=== PATIENT | male | born 1985 | race American Indian/Alaskan Native ===

== ENCOUNTER 2020-12-20 10:57 | Emergency (ER) | payer SELFPAY ==
[2020-12-20] MEDS ORDERED: IBUPROFEN 800 MG TAB PO ONE (12:45)
--- NOTE | 2020-12-20 13:16 | XRay Report ---
XR ankle 3+V LT INDICATION / CLINICAL INFORMATION: ankle pain. COMPARISON: None available. FINDINGS: BONES/JOINT(S): No acute fracture or subluxation. 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 SOFT TISSUES: No significant abnormality. ADDITIONAL FINDINGS: None. Signer Name: Ariel Dawson MD Signed: 12/20/2020 1:11 PM Workstation Name: [id number]
--- NOTE | 2020-12-20 13:20 | Emergency Department Report ---
ED Lower Extremity HPI - General Chief Complaint: Extremity Injury, Lower Stated Complaint: INJURY TO ANKLE LT Time Seen by Provider: 12/20/20 12:06 Source: patient Mode of arrival: Wheelchair Limitations: No Limitations - History of Present Illness Initial Comments: This is a 35-year-old male nontoxic, well nourished in appearance, no acute signs of distress presents to the ED with c/o of left ankle pain 1 day. Patient stated that while he was playing basketball he felt a popping sensation to the Achilles area. Patient denies any other injuries or trauma. Patient denies any numbness, tingling, fever, chills, nausea, vomiting, chest pain, shortness of breath, headache, stiff neck. Patient denies any joint swelling or joint redness. Patient stated has decreased range of motion. Patient stated has decreased gait due to pain. Patient denies any allergies or significant past medical history. MD Complaint: ankle injury -: days(s) Injury: Ankle: Left Place: street/outdoors Severity: mild Severity scale (0 -10): 8 Improves With: immobilization Worsens With: weight bearing, movement, palpation Associated Symptoms: swelling, unable to bear weight. denies: snap/pop sensation, numbness, tingling - Related Data Previous Rx's Medication Instructions Recorded Last Taken Type Naproxen 500 mg PO Q12H PRN #12 tablet 12/20/20 Unknown Rx Allergies Allergy/AdvReac Type Severity Reaction Status Date / Time No Known Allergies Allergy Verified 12/20/20 11:27 ED Review of Systems ROS: Stated complaint: INJURY TO ANKLE LT Other details as noted in HPI Constitutional: denies: chills, fever Eyes: denies: eye pain, eye discharge, vision change ENT: denies: ear pain, throat pain Respiratory: denies: cough, shortness of breath, wheezing Cardiovascular: denies: chest pain, palpitations Endocrine: no symptoms reported Gastrointestinal: denies: abdominal pain, nausea, diarrhea Genitourinary: denies: urgency, dysuria Musculoskeletal: denies: back pain, joint swelling, arthralgia Skin: denies: rash, lesions Neurological: denies: headache, weakness, paresthesias Psychiatric: denies: anxiety, depression Hematological/Lymphatic: denies: easy bleeding, easy bruising ED Past Medical Hx - Social History Smoking Status: Current Every Day Smoker Substance Use Type: None - Medications Home Medications: Home Medications Medication Instructions Recorded Confirmed Last Taken Type Naproxen 500 mg PO Q12H PRN #12 tablet 12/20/20 Unknown Rx ED Physical Exam - General Limitations: No Limitations General appearance: alert, in no apparent distress - Head Head exam: Present: atraumatic, normocephalic - Eye Eye exam: Present: normal appearance - Neck Neck exam: Present: normal inspection, full ROM - Respiratory Respiratory exam: Absent: respiratory distress - Cardiovascular Cardiovascular Exam: Present: regular rate - Extremities Exam Extremities exam: Present: tenderness, normal capillary refill. Absent: full ROM (Decreased range of motion), pedal edema, joint swelling, calf tenderness - Expanded Lower Extremity Exam Left Hip exam: Present: normal inspection, full ROM. Absent: tenderness, swelling Upper Leg exam: Present: normal inspection, full ROM. Absent: tenderness, swelling Knee exam: Present: normal inspection, full ROM. Absent: tenderness, swelling Lower Leg exam: Present: normal inspection, full ROM. Absent: tenderness, swelling, abrasion, laceration, ecchymosis, deformity, crepidus, dislocation, erythema, palpable cord, Brenda's sign Ankle exam: Present: tenderness, swelling. Absent: full ROM (Decreased range of motion), abrasion, laceration, ecchymosis, deformity, crepidus, dislocation, erythema, anterior draw sign Foot/Toe exam: Present: normal inspection, full ROM. Absent: tenderness, swelling Neuro vascular tendon exam: Present: no vascular compromise Gait: Positive: unable to bear weight - Back Exam Back exam: Present: normal inspection, full ROM. Absent: tenderness, CVA tenderness (R), CVA tenderness (L), muscle spasm, paraspinal tenderness, vertebral tenderness, rash noted - Neurological Exam Neurological exam: Present: alert, oriented X3 - Psychiatric Psychiatric exam: Present: normal affect, normal mood - Skin Skin exam: Present: warm, dry, intact, normal color. Absent: rash - Other Other exam information: Positive Alexander test to left ankle ED Course Vital Signs 12/20/20 11:27 Temperature 98.3 F Pulse Rate 70 Respiratory 18 Rate Blood Pressure 115/65 O2 Sat by Pulse 98 Oximetry Vital Signs 12/20/20 11:27 Temperature 98.3 F Pulse Rate 70 Respiratory 18 Rate Blood Pressure 115/65 O2 Sat by Pulse 98 Oximetry - Reevaluation(s) Reevaluation #1: 12/20/20 13:21 Patient is speaking in full sentences with no signs of distress noted. - Consultations Consultation #1: 12/20/20 14:39 Patient has been consulted with Dr. Lemus about patient history, physical exam, and xrays and agrees to the ED plan of care and discharge instructions with follow-up. ED Lower Extremity MDM - Radiology Data [facility] [address] [place] [address] XRay Report Signed Patient: DOTTY OWUSU MR#: [id number] : 1985 Acct:[id number] Age/Sex: 35 / M ADM Date: 12/20/20 Loc: ED Attending Dr: Ordering Physician: JB VILLALTA NP Date of Service: 12/20/20 Procedure(s): XR ankle 3+V LT Accession Number(s): [id number] cc: JB VILLALTA NP Fluoro Time In Minutes: XR ankle 3+V LT INDICATION / CLINICAL INFORMATION: ankle pain. COMPARISON: None available. FINDINGS: BONES/JOINT(S): No acute fracture or subluxation. 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 SOFT TISSUES: No significant abnormality. ADDITIONAL FINDINGS: None. Signer Name: Ariel Dawson MD Signed: 12/20/2020 1:11 PM Workstation Name: [id number] Transcribed By: CARY Dictated By: Ariel Dawson MD Electronically Authenticated By: Ariel Dawson MD Signed Date/Time: 12/20/20 1311 DD/ 1311 TD/TT: - Medical Decision Making This is a 35-year-old male that presents with left Achilles tendon rupture. Patient is stable and was examined by me. Consulted with orthopedic doctor. I referred patient to an orthopedic doctor for further evaluation for possible MRI. X-ray has been obtained and dictated by the radiologist. Patient is notified of the x-ray report with noted by the patient. Patient received a sugar tong splint and crutches and was educated by RN how to use crutches. Post splint assessment: neurovasular intact; normal cap refill <2 second; normal sensation; denies decreaed sensation; normal ROM of digits. Patient discharged with naproxen. At time of discharge, the patient does not seem toxic or ill in appearance. No acute signs of distress noted. Patient agrees to discharge treatment plan of care. No further questions noted by the patient. Critical care attestation.: If time is entered above; I have spent that time in minutes in the direct care of this critically ill patient, excluding procedure time. ED Disposition Clinical Impression: Rupture of left Achilles tendon Qualifiers: Encounter type: initial encounter Qualified Code(s): S86.012A - Strain of left Achilles tendon, initial encounter Disposition: TO HOME OR SELFCARE Is pt being admited?: No Does the pt Need Aspirin: No Condition: Stable Instructions: Achilles Tendon Tear, RICE Therapy for Routine Care of Injuries, [id number], Cast or Splint Care, Adult, Crutch Use, Adult, [id number] Additional Instructions: Follow-up with a orthopedic doctor in 3-5 days or if symptoms worsen and continue return to emergency room as soon as possible. No physical activity that extremity until cleared by orthopedic doctor Prescriptions: Naproxen 500 mg PO Q12H PRN #12 tablet PRN Reason: Pain , Severe (7-10) Referrals: PRIMARY CARE, [Primary Care Provider] - 3-5 Days ZAK LEMUS MD [Staff Physician] - 3-5 Days Forms: Work/School Release Form(ED) Time of Disposition: 15:18
[2020-12-20 15:39] VITALS: BP 134/75
== END 2020-12-20 15:38 | disposition home or self-care (01) ==
LOC: ED 10:57
DX: S86.012A Strain of left Achilles tendon, initial encounter (principal); F17.200 Nicotine dependence, unspecified, uncomplicated; Z79.899 Other long term (current) drug therapy; X50.1XXA Overexertion from prolonged static or awkward postures, initial encounter; Y93.67 Activity, basketball; Y92.89 Other specified places as the place of occurrence of the external cause; Y99.8 Other external cause status
CPT/HCPCS: 99283